=== PATIENT | female | born 1980 ===

== ENCOUNTER 2022-01-23 19:27 | Observation (INO) | payer SELFPAY ==
[2022-01-23] MEDS ORDERED: methylPREDNISolone Sod Succ/PF 125 MG/2 ML VIAL ONE (20:58)
[2022-01-23] MEDS ORDERED: Famotidine/PF 20 mg/2ml Vial ONE (20:58)
[2022-01-23] MEDS ORDERED: diphenhydrAMINE 50 MG/ML VIAL ONE (20:58)
[2022-01-23] MEDS ORDERED: Ondansetron PF 4 MG/2 ML Vial ONE (21:39)
[2022-01-23] MEDS ORDERED: EPINEPHrine 1 MG/10 ML Abboject SYRINGE ONE (21:39)
[2022-01-23] MEDS ORDERED: EPINEPHrine 1 MG/ML VIAL ONE ×2 (21:42→21:48)
[2022-01-23] MEDS ORDERED: EPINEPHrine 1 MG/ML AMP IM PRN (22:52)
[2022-01-23] MEDS ORDERED: Ondansetron ODT 4 MG TAB SL PRN (23:00)
[2022-01-23] MEDS ORDERED: Acetaminophen 325 MG TAB PO PRN (23:00)
[2022-01-23] MEDS ORDERED: Ondansetron PF 4 MG/2 ML Vial IVP PRN (23:00)
[2022-01-23] MEDS ORDERED: Acetaminophen 650 MG Suppository PR PRN (23:28)
[2022-01-24] MEDS: Sodium Chloride 0.9% 1,000 ML IV SCH ×2 (00:33→08:36)
[2022-01-24 01:41] LABS: #Lymphocytes 0.8 thou/uL (1.20-3.40); #Monocytes 0.1 thou/uL (0.11-0.59); #Neutrophils 15.6 thou/uL (1.40-6.50); %Basophils 0.1 % (0.0-1.0); %Lymphocytes 4.8 % (21.0-51.0); %Monocytes 0.6 % (0.0-10.0); %Neutrophils 94.5 % (42.0-75.0); Hemoglobin 12.9 g/dL (12.0-16.0); Mean Corpuscular HGB CONC 31.3 g/dL (32.0-36.0); Mean Corpuscular Volume 83.1 fl (78.0-98.0); Mean Platelet Volume 8.9 fL (7.4-10.4); Platelet Count 290 10x3/uL (130-400); RBC Distribution Width 15.4 % (11.5-14.5); Red Blood Cell (RBC) Count 4.97 mill/uL (4.20-5.40); White Blood Cell (WBC) Count 16.5 10x3/uL (4.8-10.8)
[2022-01-24 02:03] LABS: Anion Gap 14 mmol/L (10-20); BUN (Urea Nitrogen) 14 mg/dL (7.0-18.7); Calc. Creatinine Clearance 0 mL/min (70-130); Carbon Dioxide 18 mmol/L (22-29); Chloride 109 mmol/L (98-107); Estimated GFR 92; Glucose 174 mg/dL (70-105); Potassium 3.4 mmol/L (3.5-5.1); Sodium 138 mmol/L (136-145)
[2022-01-24] MEDS ORDERED: methylPREDNISolone Sod Succ/PF 125 MG/2 ML VIAL ONE ×2 (03:10→08:48)
[2022-01-24] MEDS: methylPREDNISolone Sod Succ/PF 125 MG/2 ML VIAL IVP SCH ×2 (03:14→08:56)
[2022-01-24] MEDS ORDERED: Acetaminophen 325 MG TAB ONE (08:25)
[2022-01-24] MEDS ORDERED: Famotidine/PF 20 mg/2ml Vial ONE (08:25)
[2022-01-24] MEDS ORDERED: diphenhydrAMINE 50 MG/ML VIAL ONE (08:25)
[2022-01-24] MEDS ORDERED: Famotidine/PF 20 mg/2ml Vial SLOW IVP SCH (09:00)
[2022-01-24] MEDS ORDERED: diphenhydrAMINE 50 MG/ML VIAL IVP SCH (09:00)
[2022-01-24] MEDS ORDERED: Acetaminophen 500 MG TAB PO SCH (16:30)
[2022-01-24 17:03] VITALS: BP 134/76; TEMP 98.1
[2022-01-24 17:04] VITALS: BMI 36.6
== END 2022-01-24 17:11 | disposition home or self-care (01) ==
LOC: ERS 19:27 → ERHOLD 22:40 → T4-B 01-24 14:06
PROVIDERS: ADMIT Student in an Organized Health Care Education/Training Program; ATTEND Nurse Practitioner Family
DX: T78.1XXA Other adverse food reactions, not elsewhere classified, initial encounter (principal); I10 Essential (primary) hypertension; E78.5 Hyperlipidemia, unspecified; Z87.891 Personal history of nicotine dependence; Z79.899 Other long term (current) drug therapy; Z88.0 Allergy status to penicillin; Z90.49 Acquired absence of other specified parts of digestive tract; Z98.890 Other specified postprocedural states
CPT/HCPCS: 36415; 80048; 85025; 96361; 96372; 96374; 96375; 96376; G0378; J0171; J1200; J2405; J2930; J7050; S0028